=== PATIENT | female | born 1960 | race African-American/Black ===

== ENCOUNTER 2021-01-17 22:10 | Emergency (ER) | payer MEDICAID ==
[~2021-01-17] VITALS: Ht 157.5 cm; Wt 68.2 kg
[2021-01-17] MEDS ORDERED: FERR-82 PO (22:38)
[2021-01-17 23:57] LABS: HEMATOCRIT 29.5 % (36-46); HEMOGLOBIN 9.9 g/dL (12.0-16.0); MEAN CORPUSCULAR HEMOGLOBIN 28.7 pg (26.0-34.0); MEAN CORPUSCULAR HGB CONC 33.7 G/dL (31.0-37.0); MEAN CORPUSCULAR VOLUME 85 fL (80-100); PLATELET COUNT (AUTO) 299 K/uL (150-450); RED BLOOD CELL COUNT(AUTO) 3.46 MIL/uL (4.00-5.20); RED CELL DISTRIBUTION WIDTH 15.9 % (11.5-14.5)
[2021-01-18 00:06] LABS: BAND NEUTROPHILS % (MANUAL) 0 % (0-5)
[2021-01-18 00:10] LABS: CALCIUM, TOTAL 9.1 mg/dL (8.8-10.5); EOSINOPHILS % (MANUAL) 13 % (1-6); LYMPHOCYTES % (MANUAL) 20 % (22-44); MONOCYTES % (MANUAL) 11 % (2-9); POTASSIUM 3.7 mmol/L (3.5-5.1); REACTIVE LYMPHOCYTES 4 % (0-0); SEGMENTED NEUTROPHILS % 52 % (40-70)
[2021-01-18 00:16] LABS: ALBUMIN 2.5 g/dL (3.4-5.0); BILIRUBIN,TOTAL 0.2 mg/dL (0.1-1.0)
[2021-01-18 01:32] VITALS: BP 162/127
== END 2021-01-18 02:00 | disposition home or self-care (01) ==
LOC: EMS 22:10
DX: D64.9 Anemia, unspecified (principal); I89.0 Lymphedema, not elsewhere classified; I10 Essential (primary) hypertension; Z79.899 Other long term (current) drug therapy
CPT/HCPCS: 80053; 85025; 99283